=== PATIENT | male | born 1955 | race African-American/Black ===

== ENCOUNTER 2018-12-09 01:24 | Emergency (ER) | payer OTHER ==
[~2018-12-09] VITALS: Ht 180.3 cm; Wt 117.0 kg
[2018-12-09 02:40] VITALS: BP 138/64
== END 2018-12-09 04:08 | disposition home or self-care (01) ==
LOC: ER 04:01
DX: I83.92 Asymptomatic varicose veins of left lower extremity (principal); I10 Essential (primary) hypertension
CPT/HCPCS: 99283